=== PATIENT | male | born 1950 | race Caucasian/White ===

== ENCOUNTER 2022-08-10 00:03 | Emergency (ER) | payer OTHER, BC ==
[2022-08-10 00:20] VITALS: BMI 32.6
[2022-08-10 10:13] VITALS: BP 135/75; PULSE 65; RESP 18; TEMP 98
== END 2022-08-10 10:00 | disposition home or self-care (01) ==
LOC: JER 00:03
DX: T46.5X1A Poisoning by other antihypertensive drugs, accidental (unintentional), initial encounter (principal)
CPT/HCPCS: 82962; 93005; 93010; 99284-25